=== PATIENT | female | born 1960 | race Caucasian/White ===

== ENCOUNTER → 2017-04-19 | Outpatient (CLI) | payer OTHER | LOC: FIMAGING 07:39 | PROVIDERS: ATTEND Family Medicine | DX: Z12.31 Encounter for screening mammogram for malignant neoplasm of breast (principal) | CPT/HCPCS: G0202 ==

== ENCOUNTER 2017-08-24 10:43 | Emergency (ER) | payer OTHER ==
[2017-08-24 10:56] VITALS: TEMP 98.4
--- NOTE | 2017-08-24 11:10 | CPEKG ---
Heart Rate: 53 RR Interval: 1132 P-R Interval: 136 QRSD Interval: 94 QT Interval: 436 QTC Interval: 410 P Granton: 80 QRS Granton: 64 T Wave Granton: -6 EKG Severity - NORMAL ECG - EKG Impression: SINUS RHYTHM Electronically Signed By: Don Lr 24-Aug-2017 14:56:02
--- NOTE | 2017-08-24 11:30 | EDPHY ---
H & P Stated Complaint: CP for 3 days. Intermittent sharp pain Time Seen by Provider: 08/24/17 11:29 - Personal History Current Tetanus Diphtheria and Acellular Pertussis (TDAP): Unsure - Medical/Surgical History Hx Asthma: No Hx Chronic Respiratory Disease: No Hx Diabetes: No Hx Cardiac Disease: No Hx Renal Disease: No Hx Cirrhosis: No Hx Alcoholism: No Hx HIV/AIDS: No Hx Splenectomy or Spleen Trauma: No Other PMH: Denies - Social History Smoking Status: Never smoked Constitutional: Initial Vital Signs Temperature (C) 36.9 C 08/24/17 10:52 Heart Rate 72 08/24/17 10:52 Respiratory Rate 16 08/24/17 10:52 Blood Pressure 113/56 L 08/24/17 10:52 O2 Sat (%) 97 08/24/17 10:52 O2 Delivery Mode Room Air Allergies/Adverse Reactions: Sulfa (Sulfonamide Antibiotics) Allergy (Verified 12/20/12 13:04) Home Medications: Medication Instructions Recorded Miscellaneous Medical Supply [NO 12/20/12 HOME MEDS] Medical Decision Making - Diagnostics Imaging Results: Imaging Impressions Abdomen CT 08/24/17 11:47 Impression: 1. No perforated viscus or evidence of acute colitis following endoscopy and biopsy. 2. Query gastritis. No evidence of perforated gastric ulcer. 3. Thick-walled gallbladder is nonspecific. No CT features of acute cholecystitis or biliary obstruction. 4. Normal liver and pancreas. Findings discussed with Emergency Department physician, Dr. Don Lr on August 24, 2017 at 1339 hours. Abdomen Ultrasound 08/24/17 13:37 Impression: 1. Minimally thickened gallbladder wall is nonspecific. No secondary findings of acute cholecystitis. 2. No cholelithiasis, biliary dilation, or free fluid. Findings discussed with Emergency Department physician, Dr. Don Lr on August 24, 2017 at 1435 hours. Imaging: Discussed imaging studies w/ inbound call center representative Radiologist, I viewed and interpreted images myself ED Course/Re-evaluation: CHIEF COMPLAINT: Upper abdominal pain x 3 days HISTORY OF PRESENT ILLNESS: The patient is a 56 y/o female complaining of intermittent sharp upper abdominal pain for the past 3 days. On Sunday, 3 days ago, she had a colonoscopy with Dr. Hsieh, boiler control room operator. There were several polyps in the transverse colon that were biopsied. After the colonoscopy she developed upper abdominal pain that was relieved when she lied down. On Sunday night, 2 days ago, the pain was slightly more intense and did not go away while lying down. On morning the pain became more dull. However, by night the pain dramatically increased and became more sharp; it was worse on the right than the left. Due to this pain she woke up last night, but was able to fall back to sleep. In addition to this pain she has also been mildly lightheaded. She took TUMS with no relief. She has been able to have bowel and gas movements since the colonoscopy. Denies nausea, vomiting, urinary or bowel complaints, fever, paresthesias or other pertinent symptoms. REVIEW OF SYSTEMS: A 10 point review of systems was performed and is negative with the exception of the elements mentioned in the history of present illness. PHYSICAL EXAM: HR, BP, O2 Sat, RR. Temp noted General Appearance: Alert, well hydrated, appropriate, and non-toxic appearing. Head: Atraumatic without scalp tenderness or obvious injury Eyes: Pupils equal, round, reactive to light and accommodation, EOMI, no trauma , no injection. Ears: Clear bilaterally, no perforation, normal landmarks Nose: Atraumatic, no rhinorrhea, clear. Throat: Mucus membranes moist. Neck: Supple, nontender, no lymphadenopathy. Respiratory: No retractions, no distress, no wheezes, and no accessory muscle use. Lungs are clear to auscultation bilaterally. Cardiovascular: Regular rate and rhythm, no murmurs, rubs, or gallops. Good capillary refill all extremities. Gastrointestinal: Epigastric and RUQ tenderness. Abdomen is soft, non-distended , no masses, no rebound, no guarding, no peritoneal signs. Musculoskeletal: Normal active ROM of all extremities, atraumatic. Neurological: Alert, appropriate, and interactive. Non-focal neuro Skin: No rashes, good turgor, no nodules on palpation. Past medical history: Denies Past surgical history: Appendectomy, x 2 Family history: Denies Social history: at bedside, lives in [place], works for [employer] DIAGNOSTICS/PROCEDURES/CRITICAL CARE TIME: The 12 lead EKG was interpreted by myself as sinus rhythm with a rate of 53. See hard copy and/or "tracemaster" electronic copy for interpretation. Abdominopelvic CT: Thickened stomach wall, thickened gallbladder wall, no perforation from colon biopsy Abdominal US: Negative DIFFERENTIAL DIAGNOSIS: The differential diagnosis for the patient's abdominal pain included but was not limited to perforated colon from colon biopsy, ovarian cyst, pelvic inflammatory disease, ovarian torsion, urinary tract infection, ectopic , cholecystitis, and appendicitis. MEDICAL DECISION MAKING: The patient is a 56 y/o female who had a colonoscopy on Sunday, 3 days ago, presenting with epigastric and RUQ tenderness. During the colonoscopy they biopsied several polyps in the transverse colon. Plan on labs and abdominopelvic CT. 1337: Spoke with radiologist, he reports the patient has thickening of the stomach and gallbladder wall. There is no perforation from the colon biopsy. Plan on abdominal US. 1343: Reassessed patient and discussed imaging and laboratory findings. I have also discussed the plan for an abdominal US; patient is comfortable with this plan 1436: Spoke with radiologist, the abdominal US is negative. 1455: Reassessed patient and discussed imaging findings. Return precautions provided; patient and her are comfortable with this plan. - Data Points Laboratory Results: Laboratory Results 08/24/17 12:20 08/24/17 12:20 08/24/17 08/24/17 08/24/17 12:20 12:20 12:18 WBC 7.42 10^3/uL 10^3/uL (3.80-9.50) RBC 4.07 10^6/uL L 10^6/uL (4.18-5.33) Hgb 13.5 g/dL g/dL (12.6-16.3) POC Hgb 14.3 gm/dL gm/dL (12.6-16.3) Hct 37.7 % L % (38.0-47.0) POC Hct 42 % % (38-47) MCV 92.6 fL fL (81.5-99.8) MCH 33.2 pg pg (27.9-34.1) MCHC 35.8 g/dL g/dL (32.4-36.7) RDW 11.8 % % (11.5-15.2) Plt Count 239 10^3/uL 10^3/uL (150-400) MPV 12.0 fL H fL (8.7-11.7) Neut % (Auto) 64.6 % % (39.3-74.2) Lymph % (Auto) 24.3 % % (15.0-45.0) Bracken % (Auto) 8.5 % % (4.5-13.0) Eos % (Auto) 1.8 % % (0.6-7.6) Baso % (Auto) 0.5 % % (0.3-1.7) Nucleat RBC Rel Count 0.0 % % (0.0-0.2) Absolute Neuts (auto) 4.80 10^3/uL 10^3/uL (1.70-6.50) Absolute Lymphs (auto) 1.80 10^3/uL 10^3/uL (1.00-3.00) Absolute Monos (auto) 0.63 10^3/uL 10^3/uL (0.30-0.80) Absolute Eos (auto) 0.13 10^3/uL 10^3/uL (0.03-0.40) Absolute Basos (auto) 0.04 10^3/uL 10^3/uL (0.02-0.10) Absolute Nucleated RBC 0.00 10^3/uL 10^3/uL (0-0.01) Immature Gran % 0.3 % % (0.0-1.1) Immature Gran # 0.02 10^3/uL 10^3/uL (0.00-0.10) POC Sodium 143 mEq/L mEq/L (134-144) Sodium 140 mEq/L mEq/L (134-144) POC Potassium 3.4 mEq/L mEq/L (3.3-5.0) Potassium 3.8 mEq/L mEq/L (3.5-5.2) POC Chloride 103 mEq/L mEq/L (97-110) Chloride 105 mEq/L mEq/L (97-110) Carbon Dioxide 26 mEq/l mEq/l (22-31) Anion Gap 9 mEq/L mEq/L (8-16) POC BUN 11 mg/dL mg/dL (7-23) BUN 12 mg/dL mg/dL (7-23) Creatinine 0.7 mg/dL mg/dL (0.6-1.0) POC Creatinine 0.7 mg/dL mg/dL (0.6-1.0) Estimated GFR > 60 Glucose 121 mg/dL H mg/dL (70-100) POC Glucose 124 mg/dL H mg/dL (70-100) Calcium 9.8 mg/dL mg/dL (8.5-10.4) Total Bilirubin 0.4 mg/dL mg/dL (0.1-1.4) Conjugated Bilirubin 0.0 mg/dL mg/dL (0.0-0.5) Unconjugated Bilirubin 0.4 mg/dL mg/dL (0.0-1.1) AST 31 IU/L IU/L (14-46) ALT 38 IU/L IU/L (9-52) Alkaline Phosphatase 48 IU/L IU/L (38-126) Total Protein 7.4 g/dL g/dL (6.3-8.2) Albumin 4.2 g/dL g/dL (3.5-5.0) Lipase 173 IU/L IU/L (23-300) Point of Care Test Results: 08/24/17 12:18 POC Sodium 143 POC Potassium 3.4 POC Chloride 103 POC BUN 11 POC Creatinine 0.7 POC Glucose 124 H Departure - Departure Disposition: Home, Routine, Self-Care Clinical Impression: Abdominal pain Qualifiers: Abdominal location: upper abdomen, unspecified Qualified Code(s): R10.10 - Upper abdominal pain, unspecified Condition: Good Instructions: Abdominal Pain (ED) Additional Instructions: 1. Follow-up with your primary doctor within 72 hours. 2. Follow-up with a boiler control room operator in the next week. 3. Return to the Emergency Department for fever, chest pain, shortness of breath , increasing pain, or other worsening of condition. Referrals: Nancy Nguyen MD [Primary Care Provider] - As per Instructions Macario Hsieh MD [Medical Doctor] - As per Instructions Report Scribed for: Don Lr Report Scribed by: Joan Landrum Date of Report: 08/24/17 Time of Report: 11:30
[2017-08-24] MEDS ORDERED: NS 1,000 ML IV ONE (11:47)
[2017-08-24] MEDS ORDERED: IOPAMIDOL (ISOVUE-300) 100 ML BTL ONE (12:12)
[2017-08-24 12:40] LABS: % IMMATURE GRANULYOCYTES 0.3 % (0.0-1.1); ABSOLUTE IMMATURE GRANULOCYTES 0.02 10^3/uL (0.00-0.10); ADD DIFF? NO; ADD MORPH? NO; ADD SCAN? NO; ATYPICAL LYMPHOCYTE FLAG 10 (0-99); FRAGMENT RBC FLAG 0 (0-99); HEMATOCRIT 37.7 % (38.0-47.0); HEMOGLOBIN 13.5 g/dL (12.6-16.3); LEFT SHIFT FLG 0 (0-99); LIPEMIA HEMOLYSIS FLAG 90 (0-99); MEAN CELL HEMOGLOBIN 33.2 pg (27.9-34.1); MEAN CELL HEMOGLOBIN CONCENTR. 35.8 g/dL (32.4-36.7); MEAN CELL VOLUME 92.6 fL (81.5-99.8); PLATELET CLUMPS FLAG 0 (0-99); PLATELET COUNT 239 10^3/uL (150-400); RED BLOOD CELL COUNT 4.07 10^6/uL (4.18-5.33); RED CELL DISTRIBUTION WIDTH 11.8 % (11.5-15.2)
[2017-08-24 12:54] LABS: ALANINE AMINOTRANSFERASE 38 IU/L (9-52); ALBUMIN 4.2 g/dL (3.5-5.0); ALKALINE PHOSPHATASE 48 IU/L (38-126); ANION GAP 9 mEq/L (8-16); ASPARTATE AMINOTRANSFERASE 31 IU/L (14-46); BILIRUBIN,TOTAL 0.4 mg/dL (0.1-1.4); BILIRUBIN-UNCONJUGATED 0.4 mg/dL (0.0-1.1); CALCIUM 9.8 mg/dL (8.5-10.4); CARBON DIOXIDE 26 mEq/l (22-31); CHLORIDE 105 mEq/L (97-110); CREATININE 0.7 mg/dL (0.6-1.0); GLOMERULAR FILTRATION RATE > 60; GLUCOSE 121 mg/dL (70-100); POTASSIUM 3.8 mEq/L (3.5-5.2); SODIUM 140 mEq/L (134-144); TOTAL PROTEIN 7.4 g/dL (6.3-8.2)
[2017-08-24 15:10] VITALS: BP 97/54; PULSE 58; RESP 16; O2SAT 97
== END 2017-08-24 15:09 | disposition home or self-care (01) ==
DX: R10.11 Right upper quadrant pain (principal); E86.9 Volume depletion, unspecified; R10.13 Epigastric pain; Z90.89 Acquired absence of other organs
CPT/HCPCS: 82947-QW; Q9967

== ENCOUNTER → 2018-07-04 | Outpatient (CLI) | payer OTHER | LOC: FIMAGING 15:17 | PROVIDERS: ATTEND Family Medicine | DX: Z12.31 Encounter for screening mammogram for malignant neoplasm of breast (principal) ==